=== PATIENT | female | born 1940 | race Caucasian/White ===

== ENCOUNTER 2017-05-27 11:21 | Day surgery (SDC) | payer MEDICARE ==
[2017-05-26 11:58] VITALS: BMI 26.0
[~2017-05-27 11:21] MED LIST: Cyclopentolate 1% Opth Drop 2 ML BOT FS SCH; Cyclopentolate 1% Opth Drop 2 ML BOT ONE; EPINEPHrine 0.3 MG in Ophthalmic Irrigation Solution 500 ML FS SCH; Phenylephrine HCl 2.5% Ophth Soln 5 ML BOT FS SCH; Phenylephrine HCl 2.5% Ophth Soln 5 ML BOT ONE
[2017-05-27] MEDS ORDERED: Midazolam HCl 2 mg/2 ml Vial ONE (12:38)
[2017-05-27] MEDS ORDERED: Fentanyl 100 MCG/2 ML VIAL ONE (12:38)
[2017-05-27] MEDS ORDERED: Diprivan 20 ML ONE (12:38)
[2017-05-27] MEDS ORDERED: Lidocaine 2% PF 5 ML VIAL ONE (12:38)
--- NOTE | 2017-05-27 13:55 | OP ---
DATE OF PROCEDURE: 05/27/2017 PREOPERATIVE DIAGNOSIS: Vitreous hemorrhage, right eye. POSTOPERATIVE DIAGNOSIS: Vitreous hemorrhage, right eye. PROCEDURE: Pars plana vitrectomy, right eye. SURGEON: Dr. Nikko Haines ANESTHESIA: Local with monitored anesthesia care. PROCEDURE IN DETAIL: The patient was identified in the preoperative holding area. Appropriate infor med consent for the planned surgical procedure on the right eye had been obtained. The patient was t ransported to the operative suite where appropriate cardiopulmonary monitoring was established. Loca l anesthesia was obtained using retrobulbar and modified Van Lint lid block using 50/50 mixture of 4% lidocaine and 0.75% bupivacaine. The patient was prepped and draped in the usual sterile manner for ophthalmic surgery on the right eye. Lid speculum was placed in the right eye. The 25-gauge trocar s were placed in conjunctiva and sclera supratemporally, inferotemporally, and supranasally. Infusio n line was placed inferotemporally. Light pipe and vitreous cutter were inserted into the eye. Core of vitrectomy was performed. No further elevations, detachments or tears in the retina were identif ied. Trocars were removed. The eye was noted to retain pressure well. Retrobulbar Kenalog and subc onjunctival Ancef were placed. Atropine and antibiotic ointment were placed, and the eye was patched and shielded. The patient was taken to the postoperative recovery unit in good condition having suf fered no immediate perioperative period. DISCHARGE INSTRUCTIONS: The patient was instructed to keep patch and shield on, avoid lifting and be nding, and follow up in the morning with Dr. Haines.
[2017-05-27] MEDS ORDERED: Propofol 200 MG/20 ML VIAL ONE (15:08)
[2017-05-27] MEDS ORDERED: Lidocaine 1% PF 5 ML VIAL ONE (15:08)
== END 2017-05-27 14:14 | disposition home or self-care (01) ==
LOC: SDC 11:21
PROVIDERS: ATTEND Ophthalmology Retina Specialist
PROC: 08T43ZZ Resection of Right Vitreous, Percutaneous Approach (ICD-10-PCS; principal; 2017-05-27)
DX: H43.11 Vitreous hemorrhage, right eye (principal); Z79.01 Long term (current) use of anticoagulants; Z79.899 Other long term (current) drug therapy; Z95.1 Presence of aortocoronary bypass graft; Z95.2 Presence of prosthetic heart valve; Z95.0 Presence of cardiac pacemaker; Z96.662 Presence of left artificial ankle joint; Z90.49 Acquired absence of other specified parts of digestive tract; Z90.710 Acquired absence of both cervix and uterus
CPT/HCPCS: J0171; J2001; J2250; J2704; J3010

== ENCOUNTER 2018-02-28 09:41 | Outpatient (CLI) | payer MEDICARE ==
--- NOTE | 2018-03-04 10:14 | MMO ---
BILATERAL SCREENING MAMMOGRAM: Date: 02/28/18 HISTORY: 78-year-old female. Routine screening mammography. COMPARISON: 05/19/16, 06/30/13. TECHNIQUE: CC and MLO views of both breasts are submitted for interpretation. This patient's mammogram was reviewed with the assistance of computer-aided detection. FINDINGS: Breasts are composed of scattered fibroglandular tissue. Bilaterally, no suspicious dominant mass, a rchitectural distortion, or suspicious calcifications. Benign-appearing calcifications of the right breast. IMPRESSION: BI-RADS category 2, benign findings. RECOMMENDATION: Annual mammogram. BIRADS 2: Benign Finding(s) Routine annual screening mammography (for women over age 40) POS: [facility]
== END 2018-02-28 09:42 | disposition home or self-care (01) ==
LOC: SCSMAMMO 09:41
PROVIDERS: ATTEND Family Medicine
DX: Z12.31 Encounter for screening mammogram for malignant neoplasm of breast (principal)
CPT/HCPCS: 77067

== ENCOUNTER 2020-09-18 03:22 | Inpatient (IN) | payer MEDICARE ==
[2020-09-18 03:40] LABS: #Eosinphils 0.1 thou/uL (0.0-0.7); #Lymphocytes 5.3 thou/uL (1.20-3.40); #Monocytes 1.1 thou/uL (0.11-0.59); #Neutrophils 5.3 thou/uL (1.40-6.50); %Basophils 0.3 % (0.0-1.0); %Eosinophils 0.9 % (0.0-10.0); %Lymphocytes 44.3 % (21.0-51.0); %Monocytes 9.5 % (0.0-10.0); %Neutrophils 44.9 % (42.0-75.0); Hemoglobin 10.5 g/dL (12.0-16.0); Mean Corpuscular HGB CONC 30.7 g/dL (32.0-36.0); Mean Corpuscular Hemoglobin 30.7 pg (27.0-31.0); Mean Corpuscular Volume 99.9 fL (78.0-98.0); Mean Platelet Volume 7.8 fL (7.4-10.4); Platelet Count 351 thou/uL (130-400); RBC Distribution Width 15.3 % (11.5-14.5); Red Blood Cell (RBC) Count 3.41 mill/uL (4.20-5.40); White Blood Cell (WBC) Count 11.8 thou/uL (4.8-10.8)
[2020-09-18 03:42] LABS: Actual Bicarbonate (HCO3a) 14.6 mEq/L (22-28); Analyzer IN Cardio ER; Base Excess (BEa) -15.9 mEq/L (-2.0 to +3.0); CO2 Tension 56.8 mmHg (35.0-45.0); Calcium, Ionized (arterial) 1.05 mmol/L (1.12-1.30); Carboxyhemoglobin (COHb) 0.1 gm% (0.0-3.0); Hemoglobin (Hb) 10.6 g/dL (12.0-16.0); O2 Tension (PaO2), arterial 135.2 mmHg (> 70.0); Potassium - ABG Lab 4.01 mmol/L (3.70-5.30)
[2020-09-18] MEDS ORDERED: Fentanyl 100 MCG/2 ML VIAL ONE (03:42)
[2020-09-18] MEDS ORDERED: Propofol 1,000 MG/100 ML VIAL IV ONE (03:44)
[2020-09-18] MEDS ORDERED: Fentanyl CADD 100 ML IV SCH ×2 (03:45→09:15)
[2020-09-18 03:57] LABS: Puncture Site RBA; pH, Arterial 7.03 (7.35-7.45)
[2020-09-18 04:02] LABS: ALT (SGPT) 85 U/L (8-55); AST (SGOT) 307 U/L (5-34); Albumin 2.9 g/dL (3.4-4.8); Alkaline Phosphatase 120 U/L (40-110); Anion Gap 27 mmol/L (10-20); BUN (Urea Nitrogen) 36 mg/dL (9.8-20.1); Calc. Creatinine Clearance 0 mL/min (70-130); Calcium 7.7 mg/dL (7.8-10.44); Carbon Dioxide 13 mmol/L (23-31); Chloride 106 mmol/L (98-107); Globulin 3.8 g/dL (2.4-3.5); Glucose 116 mg/dL (83-110); Potassium 4.7 mmol/L (3.5-5.1); Protein, Total 6.7 g/dL (5.8-8.1); Sodium 141 mmol/L (136-145)
[2020-09-18] MEDS ORDERED: Midazolam HCl 5 mg/ml Vial ONE (04:07)
[2020-09-18 04:31] LABS: CKMB 2.9 ng/mL (0-6.6)
[2020-09-18 04:37] LABS: SARS-CoV-2 NAA Rapid Test Not Detected (NotDetected)
[2020-09-18] MEDS ORDERED: Rocuronium Bromide 10 MG/ML (10ML VIAL) ONE (05:17)
[2020-09-18 05:21] LABS: Bacteria/HPF None Seen HPF (None Seen); Bilirubin Negative (Negative); Blood, Urine 1+ (Negative); Clarity Clear (Clear); Glucose, Urine (Dipstick) Normal (Negative); Ketone, Urine Negative (Negative); Leukocyte Negative Leu/uL (Negative); Nitrite Negative (Negative); Protein, Urine (Dipstick) 50 mg/dL (Neg-Trace); Specific Gravity, Urine 1.019 (1.002-1.036); Squamous Epithelial None Seen HPF (0-3); Urobilinogen Normal mg/dL (Less than 2); WBC/HPF 0-3 HPF (0-3); pH, Urine 5.5 (5.0-9.0)
[2020-09-18] MEDS ORDERED: Furosemide 100 MG/10 ML VIAL ONE (05:21)
[2020-09-18 05:24] LABS: Actual Bicarbonate (HCO3a) 20.4 mEq/L (22-28); Analyzer IN Cardio ER; Base Excess (BEa) -9.5 mEq/L (-2.0 to +3.0); Calcium, Ionized (arterial) 1.01 mmol/L (1.12-1.30); Carboxyhemoglobin (COHb) 0.3 gm% (0.0-3.0); Hemoglobin (Hb) 9.8 g/dL (12.0-16.0); O2 Tension (PaO2), arterial 64.3 mmHg (> 70.0); Potassium - ABG Lab 3.76 mmol/L (3.70-5.30)
[2020-09-18 05:26] LABS: CO2 Tension 67.8 mmHg (35.0-45.0)
[2020-09-18 05:27] LABS: Puncture Site RBA
[2020-09-18] MEDS ORDERED: Ondansetron PF 4 MG/2 ML Vial IVP PRN (06:21)
[2020-09-18] MEDS ORDERED: Acetaminophen 325 MG TAB PO PRN (06:21)
[2020-09-18] MEDS ORDERED: Acetaminophen 650 MG Suppository PR PRN (06:21)
[2020-09-18 06:38] LABS: Lactic Acid 4.7 mmol/L (0.5-2.2)
[2020-09-18 06:46] LABS: Troponin I 1.716 ng/mL (< 0.028)
[2020-09-18 06:58] LABS: PTT 65.5 sec (22.9-36.1); Prothrombin Time 46.4 sec (12.0-14.7)
[2020-09-18 07:00] LABS: INR-International Normal Ratio 4.9
[2020-09-18 08:36] LABS: Amphetamine Not Detected (NotDetected); Barbiturates Screen Not Detected (NotDetected); Benzodiazepine Screen Not Detected (NotDetected); Cocaine Metabolite Screen Not Detected (NotDetected); Medtox Control Line Valid? VALID (VALID); Medtox Reader # READER 4; Methadone Not Detected (NotDetected); Methamphetamine Not Detected (NotDetected); Opiate Screen Not Detected (NotDetected); Oxycodone Screen Not Detected (NotDetected); Phencyclidine (PCP) Not Detected (NotDetected); THC/Cannabinoid Screen Not Detected (NotDetected); Tricyclic Screen Not Detected (NotDetected)
[2020-09-18] MEDS ORDERED: Insulin Regular 300 UNITS/3 ML VIAL SC PRN (08:52)
[2020-09-18] MEDS ORDERED: Norepinephrine 8 MG/0.9% NS 250 ML IVPB PRN (08:52)
[2020-09-18] MEDS ORDERED: Famotidine 20 MG TAB PO SCH (09:00)
[2020-09-18] MEDS ORDERED: Sodium Bicarbonate 150 MEQ in Dextrose 5% in Water 1,000 ML IV SCH (09:00)
[2020-09-18] MEDS ORDERED: Ventilator Sedation Protocol 1 EACH FS SCH (09:00)
[2020-09-18] MEDS ORDERED: Cefepime 1 GM in Sodium Chloride 0.9% 100 ML IVPB SCH (09:00)
[2020-09-18] MEDS ORDERED: Famotidine/PF 20 mg/2ml Vial SLOW IVP SCH (09:00)
[2020-09-18] MEDS ORDERED: Lorazepam 2 MG/ML VIAL SLOW IVP PRN (09:15)
[2020-09-18] MEDS ORDERED: Fentanyl BOLUS 250 ML IVPB PRN (09:15)
[2020-09-18] MEDS ORDERED: Propofol BOLUS 1,000 MG/100 ML VIAL IV PRN (09:15)
[2020-09-18] MEDS ORDERED: Propofol 1,000 MG/100 ML VIAL IV PRN (09:15)
[2020-09-18 09:46] LABS: Lactic Acid 4.6 mmol/L (0.5-2.2)
[2020-09-18 09:47] LABS: Magnesium 1.5 mg/dL (1.6-2.6); Phosphorus 4.9 mg/dL (2.3-4.7)
[2020-09-18 09:49] LABS: ALT (SGPT) 708 U/L (8-55); AST (SGOT) 2816 U/L (5-34); Albumin 2.7 g/dL (3.4-4.8); Alkaline Phosphatase 145 U/L (40-110); Anion Gap 17 mmol/L (10-20); BUN (Urea Nitrogen) 38 mg/dL (9.8-20.1); Bilirubin, Total 1.7 mg/dL (0.2-1.2); Calc. Creatinine Clearance 0 mL/min (70-130); Carbon Dioxide 20 mmol/L (23-31); Chloride 112 mmol/L (98-107); Globulin 3.2 g/dL (2.4-3.5); Potassium 3.4 mmol/L (3.5-5.1); Protein, Total 5.9 g/dL (5.8-8.1); Sodium 146 mmol/L (136-145)
[2020-09-18] MEDS ORDERED: Electrolyte Replacement Protocol 1 EACH FS SCH (10:00)
[2020-09-18 10:03] LABS: Glucose 32 mg/dL (83-110)
[2020-09-18] MEDS ORDERED: Dextrose 50% Abboject 50 ML SYRINGE ONE (10:05)
[2020-09-18 10:29] LABS: CKMB 10.9 ng/mL (0-6.6)
[2020-09-18] MEDS ORDERED: Potassium Chloride 40 MEQ in Premix Bag 1 BAG IVPB SCH (10:30)
[2020-09-18] MEDS ORDERED: Dextrose 50% Abboject 50 ML SYRINGE SLOW IVP SCH (10:30)
[2020-09-18] MEDS ORDERED: Magnesium 2 GM/50 ML 2 GM in Premix Bag 1 BAG IVPB SCH (10:45)
[2020-09-18 11:15] VITALS: BP 108/51
[2020-09-18 11:37] VITALS: TEMP 98.8
[2020-09-18] MEDS ORDERED: VANCOMYCIN 1.25 GM/250 ML BAG 1.25 GM in Premix Bag 1 BAG IVPB SCH (12:15)
[2020-09-18] MEDS: Morphine 2 MG/ML VIAL SLOW IVP PRN ×6 (12:57→13:11)
[2020-09-18] MEDS ORDERED: Furosemide 40 MG/4 ML VIAL SLOW IVP SCH (14:00)
[2020-09-19] MEDS ORDERED: Vancomycin 1 GM in Premix Bag 1 BAG IVPB SCH (13:00)
== END 2020-09-18 14:30 | disposition expired | DRG 296 ==
LOC: ERS 03:22 → CCU 05:31
PROVIDERS: ADMIT Internal Medicine; ATTEND Internal Medicine
PROC: 0BH17EZ Insertion of Endotracheal Airway into Trachea, Via Natural or Artificial Opening (ICD-10-PCS; principal; 2020-09-18)
PROC: 5A1935Z Respiratory Ventilation, Less than 24 Consecutive Hours (ICD-10-PCS; 2020-09-18)
DX: I46.9 Cardiac arrest, cause unspecified (principal); J96.01 Acute respiratory failure with hypoxia; J96.02 Acute respiratory failure with hypercapnia; I50.33 Acute on chronic diastolic (congestive) heart failure; N17.9 Acute kidney failure, unspecified; E87.2 Acidosis; G93.1 Anoxic brain damage, not elsewhere classified; Z66 Do not resuscitate; I25.10 Atherosclerotic heart disease of native coronary artery without angina pectoris; E78.5 Hyperlipidemia, unspecified; I10 Essential (primary) hypertension; D72.829 Elevated white blood cell count, unspecified; I49.5 Sick sinus syndrome; D64.9 Anemia, unspecified; E05.00 Thyrotoxicosis with diffuse goiter without thyrotoxic crisis or storm; Z88.1 Allergy status to other antibiotic agents; Z95.0 Presence of cardiac pacemaker; Z79.01 Long term (current) use of anticoagulants; Z95.2 Presence of prosthetic heart valve; Z95.1 Presence of aortocoronary bypass graft; Z90.710 Acquired absence of both cervix and uterus; Z80.9 Family history of malignant neoplasm, unspecified; Z82.49 Family history of ischemic heart disease and other diseases of the circulatory system; Z79.899 Other long term (current) drug therapy; Z20.822 Contact with and (suspected) exposure to COVID-19; K74.60 Unspecified cirrhosis of liver
CPT/HCPCS: 31500; 36415; 36416; 36600; 51702; 71045; 76705; 80053; 80306; 81003; 81015; 82553; 82805; 83605; 83735; 83880; 84100; 84443; 84484; 85025; 85610; 85730; 86850; 86900; 86901; 87040; 92950; 93005; 93306; 94002; 96365; 96366; 96367; 96375; 96376; 99292; J0692; J1940; J2250; J2270; J2704; J3010; J3480; J3490; J7070; S0028; U0002